=== PATIENT | female | born 1960 | race Caucasian/White ===

== ENCOUNTER 2019-05-17 08:53 | Outpatient (CLI) | payer OTHER | END 2019-05-17 09:06 | disposition home or self-care (01) | LOC: SONOGRAMA 08:53 | DX: E04.2 Nontoxic multinodular goiter (principal) ==

== ENCOUNTER 2021-03-02 09:13 | Outpatient (CLI) | payer OTHER | END 2021-03-02 09:20 | disposition home or self-care (01) | LOC: SONOGRAMA 09:13 | PROVIDERS: ATTEND Pathology Anatomic Pathology & Clinical Pathology | DX: E04.1 Nontoxic single thyroid nodule (principal) ==